=== PATIENT | male | born 1990 | race African-American/Black ===

== ENCOUNTER 2023-08-30 11:54 | Emergency (ER) | payer SELFPAY | END 2023-08-30 14:10 | disposition home or self-care (01) | LOC: CSHERS 11:54 | DX: S62.635A Displaced fracture of distal phalanx of left ring finger, initial encounter for closed fracture (principal); S61.315A Laceration without foreign body of left ring finger with damage to nail, initial encounter; X58.XXXA Exposure to other specified factors, initial encounter; Y99.0 Civilian activity done for income or pay; Z23 Encounter for immunization | CPT/HCPCS: 11760; 90471; 90715; J0665 ==